=== PATIENT | female | born 1980 | race Caucasian/White ===

== ENCOUNTER 2018-07-27 17:31 | Emergency (ER) | END 2018-07-27 20:59 | disposition home or self-care (01) ==

== ENCOUNTER 2019-02-02 19:39 | Inpatient (IN) | payer OTHER ==
[~2019-02-02] VITALS: Ht 162.6 cm; Wt 107.2 kg
[2019-02-02 19:48] VITALS: Ht 162.6 cm; Wt 107.2 kg
[2019-02-02 19:49] VITALS: BP 135/83; PULSE 79; RESP 16
--- NOTE | 2019-02-02 21:30 | HP ---
Date/Time of Note Date/Time of Note DATE: 02/02/19 TIME: 21:28 OB - History Hx of Present Chief Complaint: post date Estimated Due Date: Feb 01, 2019 : 4 Para: 3 Spontaneous : 0 Therapeutic : 0 Care: Limited Care Ultrasounds: Normal mid trimester US Obstetrical Complications: None Medical Complications: Other (myasthenia gravis) Past Family/Social History * Past Medical, Surgical, Family and Obstetric Histories reviewed from chart. GBS Status: Negative OB Admission Exam Vital Signs Vital Signs Vital Signs Date Temp Pulse Resp B/P (MAP) Pulse Ox O2 O2 Flow FiO2 Time Delivery Rate 02/02/19 98.2 79 16 135/83 Room Air 19:49 (100) Physical Exam HEENT: WNL Heart: Rhythm Normal Lungs: Clear, Equal Abdomen: WNL Extremities: Normal Reflexes: Normal Cervical Dilatation: 4cm Effacement: 75% Station: -1 Membranes: Intact Heart Rate: 120's Accelerations: Accelerations Present Decelerations: No Decelerations Varibility: Moderate OB Assessment/Plan Reason for admission: active labor Plan: Expectant Management NEELAM CAMACHO MD Feb 02, 2019 21:30
[2019-02-02] MEDS ORDERED: OXYTOCIN 30 UNITS/LR 500 ML IV PRN (22:00)
[2019-02-02] MEDS ORDERED: CARBOPROST 250 MCG INJ IM PRN (22:00)
[2019-02-02] MEDS ORDERED: BUTORPHANOL 2 MG INJ IV PRN (22:00)
[2019-02-02] MEDS ORDERED: METHYLERGONOVINE 0.2 MG INJ IM PRN (22:00)
[2019-02-02] MEDS ORDERED: MISOPROSTOL 200 MCG TAB PR PRN (22:00)
[2019-02-02] MEDS ORDERED: OXYTOCIN 30 UNITS/LR 500 ML IV SCH ×3 (22:00→23:00)
[2019-02-02] MEDS ORDERED: LIDOCAINE 1% (MPF) 30 ML INJ INJ PRN (22:00)
[2019-02-02] MEDS: LACTATED RINGER'S 1,000 ML IV SCH (22:30)
[2019-02-03] MEDS: ACETAMINOPHEN 325 MG TAB PO PRN ×2 (00:26→13:42)
[2019-02-03] MEDS: LACTATED RINGER'S 1,000 ML IV SCH ×2 (02:27→03:44)
--- NOTE | 2019-02-03 03:04 | PREAC ---
Date/Time of Note Date/Time of Note DATE: 02/03/19 TIME: 03:03 Anesthesia Eval and Record Evaluation Time Pre-Procedure Interview DATE: 02/03/19 TIME: 03:03 Age 39 Sex female NPO: 8 hrs Preoperative diagnosis Planned procedure labor epidural Past Medical History Past Medical History: Includes GI: Morbid obesity Surgery & Anesthesia Issues No known issue Meds Anticoagulation: No Beta Adolfo within 24 hr: No Reason Beta Adolfo not given: Pt. not on B-Adolfo Current Medications Lactated Ringer's 1,000 ml @ 125 mls/hr Q8H IV Last administered on 02/03/19at 02:27; Admin Dose 125 MLS/HR; Start 02/02/19 at 21:37 Butorphanol Tartrate (Stadol) 2 mg Q2H PRN IV .PAIN; Start 02/02/19 at 22:00 Lidocaine (Xylocaine 1% (Mpf)) 30 ml ONCE PRN INJ .EPISIOTOMY; Start 02/02/19 at 22:00 Oxytocin/Lactated Ringer's 500 ml @ 500 mls/hr ONCE POST IV ; Start 02/02/19 at 22:00 Oxytocin/Lactated Ringer's 500 ml @ 125 mls/hr POST IV ; Start 02/02/19 at 22:00 Oxytocin/Lactated Ringer's 500 ml @ 0 mls/hr ONCE PRN IV .VAGINAL BLEEDING; Start 02/02/19 at 22:00 Methylergonovine Maleate (Methergine) 0.2 mg ONCE PRN IM .VAGINAL BLEEDING; Start 02/02/19 at 22:00 Carboprost Tromethamine (Hemabate) 250 mcg ONCE PRN IM .VAGINAL BLEEDING; Start 02/02/19 at 22:00 Misoprostol (Cytotec) 1,000 mcg ONCE PRN GA .VAGINAL BLEEDING; Start 02/02/19 at 22:00 Oxytocin/Lactated Ringer's 500 ml @ 0 mls/hr FOR INDUCTION IV Last administered on 02/03/19at 00:14; Admin Dose 1 MLS/HR; Start 02/02/19 at 23:00 Acetaminophen (Tylenol Tab) 650 mg Q4H PRN PO MILD PAIN(1-3)OR ELEVATED TEMP Last administered on 02/03/19at 00:26; Admin Dose 650 MG; Start 02/03/19 at 00:30 Meds reviewed: Yes Allergies Coded Allergies: No Known Allergy (Unverified , 02/02/19) Allergies Reviewed: Yes Labs/Studies Labs Reviewed: Reviewed by anesthesiologist Result Diagram: 02/02/19 2230 Laboratory Tests 02/02/19 22:30 Blood Bank Test 02/02/19 22:30 Antibody Screen NEGATIVE Blood Type A POSITIVE Rh Immune Globulin Candidate NO test: Positive Pre-procedure Exam Last vitals Vital Signs Date Temp Pulse Resp B/P (MAP) Pulse Ox O2 O2 Flow FiO2 Time Delivery Rate 02/02/19 98.2 79 16 135/83 Room Air 19:49 (100) Airway: Adequate mouth opening, Adequate thyromental dist Mallampati: Mallampati II Teeth: Normal Lung: Normal Heart: Normal ASA Physical Status ASA physical status: 2 Emergency: None Planned Anesthetic Neuraxial: Epidural Pre-operative Attestations Prior to commencing anesthesia and surgery, the patient was re-evaluated, there was verification of: *The patient's identity *The results of appropriate recent lab work and preoperative vital signs *The above evaluation not changing prior to induction *Anesthetic plan, risk benefits, alternative and complications discussed with patient/family; questions answered; patient/family understands, accepts and wishes to proceed. LIZABETH STEVEN Feb 03, 2019 03:04
[2019-02-03] MEDS ORDERED: HYDROmorphONE 0.5 MG/0.5 ML SYG IV PRN ×2 (03:30)
[2019-02-03] MEDS ORDERED: ONDANSETRON 4 MG INJ IV PRN (03:30)
[2019-02-03] MEDS ORDERED: FENTAnyl 2MCG/ML-ROPIV 0.2% 100 ML BAG EPI SCH (03:30)
[2019-02-03] MEDS ORDERED: DIPHENHYDRAMINE 50 MG INJ IV PRN (03:30)
[2019-02-03] MEDS ORDERED: KETOROLAC 30 MG INJ IV PRN (03:30)
[2019-02-03] MEDS ORDERED: NALOXONE (0.4 MG/ML) INJ IV PRN (03:30)
--- NOTE | 2019-02-03 04:08 | PAC ---
Date/Time of Note Date/Time of Note DATE: 02/03/19 TIME: 04:08 Post-Anesthesia Notes Post-Anesthesia Note Last documented vital signs Vital Signs Date Temp Pulse Resp B/P (MAP) Pulse Ox O2 O2 Flow FiO2 Time Delivery Rate 02/02/19 98.2 79 16 135/83 Room Air 19:49 (100) Activity: WNL Respiratory function: WNL Cardiovascular function: WNL Mental status: Baseline Pain reasonably controlled: Yes Hydration appropriate: Yes Nausea/Vomiting absent: Yes LIZABETH STEVEN Feb 03, 2019 04:08
[2019-02-03] MEDS ORDERED: ACETAMINOPHEN 1000MG/100ML IV 100 ML IVPB ONE (07:30)
[2019-02-03] MEDS ORDERED: MINERAL OIL LIGHT 10 ML VIAL TOP ONE (10:30)
[2019-02-03] MEDS ORDERED: PNV11TAB PO (11:12)
--- NOTE | 2019-02-03 13:20 | LDN ---
Date/Time of Note Date/Time of Note DATE: 02/03/19 TIME: 13:17 Delivery Summary Weeks of Gestation 40 weeks Placenta Delivered: Spontaneously Meconium: none Episiotomy: No Laceration repair: First degree laceration repaired with 3-0 Vicryl. Anesthesia type: Epidural Estimated blood loss: 150 Sponge & Needle done & correct: Yes All needle counts correct: Yes Any foreign bodies felt in the: No Infant Delivery Information Sex Sex: male Apgars 1 Minute: 9 5 Minute: 9 Suctioning Nose & mouth suctioned at babak: No Delee suction performed: No Umbilical Cord Umbilical cord with: 3 Vessels Cord presentations: no nuchal cord Cord Blood was obtained: Yes Mother & Baby Disposition Disposition Mom & Baby to Maternity; Good: Yes NEELAM CAMACHO MD Feb 03, 2019 13:20
[2019-02-03 14:30] VITALS: BP 112/77; PULSE 85; RESP 18
[2019-02-03 15:00] VITALS: BP 131/67; PULSE 80; RESP 18
[2019-02-03] MEDS: LACTATED RINGER'S 1,000 ML IV* SCH (16:05)
[2019-02-03 16:30] VITALS: BP 125/68; PULSE 78; RESP 18
[2019-02-03] MEDS ORDERED: OXYTOCIN 30 UNITS/LR 500 ML IV PRN (16:30)
[2019-02-03] MEDS ORDERED: DIBUCAINE 1% 30 GM OINT TOP PRN (16:30)
[2019-02-03] MEDS ORDERED: METHYLERGONOVINE 0.2 MG INJ IM PRN (16:30)
[2019-02-03] MEDS ORDERED: ACETAMINOPHEN 325 MG TAB PO PRN (16:30)
[2019-02-03] MEDS ORDERED: HYDROCODONE/APAP (5/325) TAB PO PRN (16:30)
[2019-02-03] MEDS ORDERED: MISOPROSTOL 200 MCG TAB PR PRN (16:30)
[2019-02-03] MEDS ORDERED: BENZOCAINE 20% 56 ML SPRAY TOP PRN (16:30)
[2019-02-03] MEDS ORDERED: CARBOPROST 250 MCG INJ IM PRN (16:30)
[2019-02-03] MEDS ORDERED: WITCH HAZEL/GLYCERIN PAD PR PRN (16:30)
[2019-02-03] MEDS: IBUPROFEN 600 MG TAB PO SCH ×2 (17:09→23:54)
[2019-02-03 19:30] VITALS: BP 120/68; PULSE 67; RESP 19
[2019-02-03] MEDS: SENNA/DOCUSATE NA (8.6MG/50MG) TAB PO SCH (21:06)
[2019-02-04] MEDS: LACTATED RINGER'S 1,000 ML IV* SCH (00:05)
[2019-02-04 04:00] VITALS: BP 113/61; PULSE 66; RESP 19
[2019-02-04] MEDS: IBUPROFEN 600 MG TAB PO SCH ×4 (05:48→23:35)
[2019-02-04 08:15] VITALS: BP 137/71; PULSE 78; RESP 20
--- NOTE | 2019-02-04 10:09 | QN ---
Documentation Comment No complaint Afebrile VSS Fundus firm Stable Continue present care. NEELAM CAMACHO MD Feb 04, 2019 10:09
[2019-02-04] MEDS: SENNA/DOCUSATE NA (8.6MG/50MG) TAB PO SCH ×2 (10:58→21:33)
[2019-02-04 12:00] VITALS: BP 124/74; PULSE 76; RESP 20
[2019-02-04 16:00] VITALS: BP 121/84; PULSE 79; RESP 20
[2019-02-04 19:20] VITALS: BP 123/80; PULSE 73; RESP 18
[2019-02-05 04:00] VITALS: BP 131/77; PULSE 77; RESP 19
[2019-02-05] MEDS: IBUPROFEN 600 MG TAB PO SCH ×2 (05:40→11:52)
[2019-02-05 08:00] VITALS: BP 133/89; PULSE 74; RESP 18
[2019-02-05] MEDS: SENNA/DOCUSATE NA (8.6MG/50MG) TAB PO SCH (08:19)
[2019-02-05] MEDS ORDERED: DIPHTH/TET/ACEL PERTUSS (ADULT) 0.5 ML VIAL IM* ONE (09:00)
[2019-02-05 15:30] VITALS: BP 131/77; PULSE 71; RESP 18
--- NOTE | 2019-02-05 16:15 | DS ---
Date/Time of Note Date/Time of Note DATE: 02/05/19 TIME: 16:14 Obstetrical Discharge Record Final Diagnosis Final Diagnosis: Term delivered Section Section: Repeat Condition on Discharge Physical Assessment Voiding: Yes Bowel Movement: Yes Breast: Soft, non-tender, Filling Fundus: Firm Abdomen and Incision: Incision intact Calf Tenderness: No Patient Condition: Stable NEELAM CAMACHO MD Feb 05, 2019 16:15
--- NOTE | 2019-02-05 16:16 | DS ---
Date/Time of Note Date/Time of Note DATE: 02/05/19 TIME: 16:16 Obstetrical Discharge Record Final Diagnosis Final Diagnosis: Term delivered Vaginal Delivery Obstetrical Delivery: Spontaneous Condition on Discharge Physical Assessment Voiding: Yes Bowel Movement: Yes Breast: Soft, non-tender, Filling Fundus: Firm Calf Tenderness: No Patient Condition: Stable NEELAM CAMACHO MD Feb 05, 2019 16:16
--- NOTE | 2019-02-06 17:27 | DELSUM ---
Delivery Summary A-C Datetime Report Generated by CPN: 02/06/2019 17:27 DELIVERY PERSONNEL Handle And Vent Machine Operator: Sebunnya, Phoebe MATERNAL INFORMATION Delivery Anesthesia: Epidural Medications in Delivery: 30 UNIT PITOCIN lr 500ml Delivery QBL (ml): 150 Placenta Cultured: No Maternal Complications: Other Other Maternal Complications: AMA; PT STATES SHE HAS MYASTHENIA GRAVIS LABOR SUMMARY EDC: 02/01/2019 00:00 No. Babies in Womb: 1 Attempted: No Labor Anesthesia: Epidural LABOR INFORMATION Reason for Induction: Postterm Onset of Labor: 02/03/2019 00:16 Complete Dilatation: 02/03/2019 12:02 Oxytocin: Induction Group B Beta Strep: Negative Antibiotics # of Doses: 0 Steroids Given: None Reason Steroids Not Administered: Not Applicable MEMBRANES Membranes Rupture Method: Spontaneous Rupture of Membranes: 02/03/2019 12:02 Length of Rupture (hr): 0.32 Amniotic Fluid Color: Clear Amniotic Fluid Amount: Moderate Amniotic Fluid Odor: None STAGES OF LABOR Stage 1 hr: 11 Stage 1 min: 46 Stage 2 hr: 0 Stage 2 min: 19 Stage 3 hr: 0 Stage 3 min: 3 Total Time in Labor hr: 12 Total Time in Labor min: 8 VAGINAL DELIVERY Episiotomy: None Laceration Extension: First Degree Laceration Type: Perineal Laceration Repair: Yes Initial Vag Sponge Count: 10 Final Vag Sponge Count: 10 Initial Vag Sharps Count: 2 Final Vag Sharps Count: 2 Sponge Count Correct: Yes; Vaginal Sweep Performed Sharps Count Correct: Yes BABY A INFORMATION Delivery Date/Time: 02/03/2019 12:21 Method of Delivery: Vaginal Born in Route : No : N/A Forceps: N/A Vacuum Extraction: N/A Shoulder Dystocia : N/A SHOULDER DYSTOCIA BABY A Delivery Date/Time: 02/03/2019 12:21 PRESENTATION/POSITION BABY A Presentation: Cephalic Cephalic Presentation: Vertex Vertex Position: Left Occipital Anterior Breech Presentation: N/A PLACENTA INFORMATION BABY A Placenta Delivery Time : 02/03/2019 12:24 Placenta Method of Delivery: Spontaneous Placenta Status: Delivered SCORES BABY A Heart Rate 1 min: >100 bpm Resp Effort 1 min: Good Cry Reflex Irritability 1 min: Cough/Sneeze/Pulls Away Muscle Tone 1 min: Active Motion Color 1 min: Body Ullin, Extremit Blue Resuscitation Effort 1 min: Tactile Stimulation SCORE 1 MIN: 9 Heart Rate 5 min: >100 bpm Resp Effort 5 min: Good Cry Reflex Irritability 5 min: Cough/Sneeze/Pulls Away Muscle Tone 5 min: Active Motion Color 5 min: Body Ullin, Extremit Blue Resuscitation Effort 5 min: Tactile Stimulation SCORE 5 MIN: 9 INFORMATION BABY A Gestational Age at Delivery: 40.2 Gestational Status: Full Term- 39- 40.6 Weeks Outcome : Liveborn Condition : Stable Infant Sex: Male IDENTIFICATION/MEDS BABY A ID Band Number: [id number] ID Band Location: Right Leg; Left Arm Sensor Applied: Yes Sensor Number: [id number] Sensor Location : Cord Clamp Vitamin K Given : Not Given Erythromycin Given: Not Given WEIGHT/LENGTH BABY A Birthweight (gm): 4150 Weight (lb): 9 Weight (oz): 2 Infant Length (in): 20.50 Infant Length (cm): 52.07 CORD INFORMATION BABY A No. Cord Vessels: 3 Nuchal Cord : N/A Nuchal Cord- Other: 0 True Knot: 0 Cord Blood Taken: Yes Banking/Donate Info: NO Infant Suction: Mouth; Nose ASSESSMENT BABY A Complications: Multiple Variable Decels Physical Findings at Delivery: Within Normal Limits Infant Respirations: Appears Normal Business Objects Developer/ALS Called : No Infant Care By: dwain huerta rn Transferred To: Remains with Mother
== END 2019-02-05 17:27 | disposition home or self-care (01) | DRG 806 ==
LOC: OBT 19:39 → L-D 19:40 → OBT 21:43 → PP1 02-03 14:26
PROVIDERS: ADMIT Obstetrics & Gynecology; ATTEND Obstetrics & Gynecology
PROC: 4A1HXCZ Monitoring of Products of Conception, Cardiac Rate, External Approach (ICD-10-PCS; 2019-02-02)
PROC: 10E0XZZ Delivery of Products of Conception, External Approach (ICD-10-PCS; principal; 2019-02-03)
PROC: 0HQ9XZZ Repair Perineum Skin, External Approach (ICD-10-PCS; 2019-02-03)
DX: O48.0 Post-term pregnancy (principal); O99.12 Other diseases of the blood and blood-forming organs and certain disorders involving the immune mechanism complicating childbirth; Z37.0 Single live birth; G70.00 Myasthenia gravis without (acute) exacerbation; Z3A.40 40 weeks gestation of pregnancy; O70.0 First degree perineal laceration during delivery; O99.214 Obesity complicating childbirth; E66.01 Morbid (severe) obesity due to excess calories
CPT/HCPCS: 62319; 76815; 76818; 85025; 85610; 85730; 86592; 86850; 86900; 86901; 87340; 99464; J0131; J1200; J2590; J3010; J7120